=== PATIENT | female | born 1935 | race Caucasian/White ===

== ENCOUNTER → 2016-09-07 | Outpatient (CLI) | payer MEDICARE, BC ==
[~2016-09-07] MED LIST: DURAGESIC12 MCG; FENTANYL1 PATCH .7 TOP; FOSAMAX PO; HCTZ PO; MACROBID 100 M100 MG PO; PHENERGAN PO; PRAVACHOL PO; SYNTHROID0.05 MG PO; TARKA 4/2401 BOTTLE PO
--- NOTE | ~2016-09-07 | MR165 ---
[facility] A Service of [facility] & [facility] RADIOLOGY TEXT RESULTS PATIENT: JORI MAURO LOCATION: [facility] : 36 UNIT #: [id number] AGE: [address]: Kieran Gilman MD SEX: F ORDER DR: [id number] [facility] [address] [place], [place] [address] [id number] O MR#: [id number] Acc #: [id number] NAME: JORI MAURO : 1935 SEX: F STUDY DATE/TIME: 09/07/2016 19:33 UNIT: [facility] ROOM: STUDY DESCRIPTION: MR Shoulder Wo Contrast Rt Attending Physician: Kieran Gilman M.D. Referring Physician: Kieran Gilman M.D. Ordering Physician: Kieran Gilman M.D. Primary Care Physician: Kieran Gilman M.D. MRI CENTER REPORT This report is preliminary unless electronic signature is present. EXAM MRI of the right shoulder HISTORY 81-year-old female right shoulder pain, fell 1-1/2 years ago. FINDINGS Multiplanar multiecho imaging was performed of the right shoulder utilizing a high field magnet and dedicated protocol. Examination demonstrates moderate AC joint arthropathy with a prominent inferiorly-directed distal clavicular osteophyte which does produce some mass effect on the rotator cuff. There is also prominent superiorly directed acromial and clavicular osteophytes. Enthesopathic cystic change is noted along the greater tuberosity. Joint fluid within normal limits. There is a 6.0 mm focus of tendinopathy involving the critical zone of the supraspinatus tendon. Suspected partial-thickness articular-sided tear measuring about 9.0 mm within the critical zone of the supraspinatus tendon. No full-thickness tear identified. The infraspinatus, teres minor and subscapularis tendons appear intact. There is mild subscapularis tendinopathy. No muscle atrophy or edema. There is degeneration of the superior labrum. The biceps anchor and long tendon of the biceps appears intact. Anterior-posterior labrum unremarkable. The extraarticular soft tissues appear normal. IMPRESSION 1. Moderate AC joint arthropathy. There is some edema in the distal clavicle which may imply some active inflammation. 2. Rotator cuff tendinopathy predominantly involving the supraspinatus tendon with a 9.0 mm partial-thickness articular-sided tear within the critical zone of the supraspinatus tendon. This is estimated to involve less than 50% of the tendon thickness. [facility] A Service of [facility] / [facility] RADIOLOGY TEXT RESULTS PATIENT: JORI MAURO LOCATION: [facility] : 36 UNIT #: [id number] AGE: [address]: Kieran Gilman MD SEX: F ORDER DR: Dictated by... Marilyn Tse M.D. THIS IS AN ELECTRONICALLY VERIFIED REPORT Marilyn Tse M.D. at 09/12/2016 2:13 PM NEELA/rachel TD: 09/08/2016 11:58 JOB #: [id number] MRI CENTER REPORT Page 1 of 1 COPY
--- NOTE | ~2016-09-07 | MR113 ---
[facility] A Service of [facility] & [facility] RADIOLOGY TEXT RESULTS PATIENT: JORI MAURO [facility]ATION: [facility] : 36 UNIT #: [id number] AGE: [address]: Kieran Gilman MD SEX: F ORDER DR: [id number] [facility] [address] [place], [place] [address] [id number] O MR#: [id number] Acc #: [id number] NAME: JORI MAURO : 1935 SEX: F STUDY DATE/TIME: 09/07/2016 18:45 UNIT: [facility] ROOM: STUDY DESCRIPTION: MR Lumbar Wo Contrast Attending Physician: Kieran Gilman M.D. Referring Physician: Kieran Gilman M.D. Ordering Physician: Kieran Gilman M.D. Primary Care Physician: Kieran Gilman M.D. MRI CENTER REPORT This report is preliminary unless electronic signature is present. EXAM Lumbar MRI. HISTORY Low back pain since falling 1 1/2 years ago. Bilateral numbness in the feet. TECHNIQUE Multiplanar imaging of the lumbar spine was performed with short and long TR and compared to a previous scan from 07/27/2009. FINDINGS Coronal series demonstrates a mid lumbar dextroscoliosis. The Ackerman angle measures approximately 20 degrees. There is a compression fracture of L1 with edematous changes. The most extensive loss of height is in the mid portion of the vertebral body. Anteriorly, there is approximately 25% to 30% loss of height. There is approximate 15% to 20% loss of height posteriorly. The posterior-inferior margin of L1 is retropulsed back into the spinal canal contacting the conus. This causes moderately severe narrowing of the canal at this level. Marrow edema is also seen extending into the right pedicle and right facet. At L2-3, the disc is degenerated. There is broad-based posterior disc bulging with osteophyte formation and advanced bilateral facet disease with moderate central stenosis. Foraminal stenosis is mild bilaterally. At L3-4, the disc is collapsed. There is a small broad-based posterior osteophyte and there is moderate bilateral facet disease with moderate central stenosis. Foraminal narrowing is mild to moderate on both sides. At L4-5, the disc is collapsed with broad-based posterior osteophyte [facility] A Service of [facility] & [facility] RADIOLOGY TEXT RESULTS PATIENT: JORI MAURO LOCATION: [facility] : 36 UNIT #: [id number] AGE: [address]: Kieran Gilman MD SEX: F ORDER DR: formation and moderate facet hypertrophy. Central stenosis is not present to a significant degree. Foraminal stenosis is mild on the left and moderate on the right. At L5-S1, the disc is degenerated. There is broad-based posterior disc bulging. It extends into the foramen significantly more on the right than on the left. The left foramen is widely patent. The right foramen is severely narrowed. Facet hypertrophy is also asymmetrically worse on the right than on the left. No marrow signal abnormalities are seen elsewhere in the lumbar spine. No signal abnormalities are seen in the conus or in the lower thoracic cord. No paraspinous soft tissue masses are noted. IMPRESSION 1. Subacute compression fracture of L1 extending into the right pedicle and facet. There is moderately severe canal narrowing and contact of the anterior aspect of the conus secondary to retropulsion of the posterior inferior margin of L1. 2. Scoliosis with multilevel degenerative disc and facet disease elsewhere in the lumbar spine as described above level by level. Dictated by... Freddy Ramirez M.D. THIS IS AN ELECTRONICALLY VERIFIED REPORT Freddy Ramirez M.D. at 09/09/2016 3:52 PM JENELLE/radha TD: 09/09/2016 09:36 JOB #: [id number] MRI CENTER REPORT Page 1 of 1 COPY
== END | disposition home or self-care (01) ==
LOC: CMRI 18:00
DX: M51.36 Other intervertebral disc degeneration, lumbar region (principal); M12.9 Arthropathy, unspecified; M12.811 Other specific arthropathies, not elsewhere classified, right shoulder; M75.101 Unspecified rotator cuff tear or rupture of right shoulder, not specified as traumatic; M48.56XD Collapsed vertebra, not elsewhere classified, lumbar region, subsequent encounter for fracture with routine healing; M41.9 Scoliosis, unspecified
CPT/HCPCS: 72148; 73221

== ENCOUNTER → 2016-10-05 | Outpatient (CLI) | payer MEDICARE, BC ==
--- NOTE | ~2016-10-05 | MY29 ---
[facility] A Service of [facility] RADIOLOGY TEXT RESULTS PATIENT: JORI MAURO LOCATION: [facility] : 36 UNIT #: [id number] AGE: [address]: Kieran Gilman MD SEX: F ORDER DR: [id number] [id number] [facility] [place], [place] [address] [id number] O MR#: [id number] Acc #: [id number] NAME: JORI MAURO : 1935 SEX: F STUDY DATE/TIME: 10/05/2016 10:52 UNIT: [facility] ROOM: STUDY DESCRIPTION: MY TRISH SCREENING W/ CAD BILAT Attending Physician: Kieran Gilman M.D. Referring Physician: Kieran Gilman M.D. Ordering Physician: Kieran Gilman M.D. Primary Care Physician: Kieran Gilman M.D. MEDICAL IMAGING REPORT This report is preliminary unless electronic signature is present EXAM Bilateral digital screening mammogram with CAD 10/05/2016 INDICATIONS 81-year-old female for routine screening. No reported problems and no personal or family history of breast cancer. No surgeries. TECHNIQUE CC and MLO views of the breasts were obtained and reviewed with an approved FDA CAD device COMPARISON 09/29/2015, 06/16/2014, 06/13/2013 FINDINGS There is artifact on the right breast related to the Fentanyl patch that cannot be removed by the patient. Breast parenchyma is composed of scattered fibroglandular densities. The pattern is unchanged. There is no new dominant nodule, mass or suspicious cluster of microcalcifications. Benign calcifications are present. IMPRESSION 1. Benign screening mammogram, 1-year followup recommended. Patients over the age of 40 are entered into a reminder system with target due date for the next mammogram. A result letter will also be sent to the patient. BIRADS: Benign findings [facility] A Service of [facility] RADIOLOGY TEXT RESULTS PATIENT: JORI MAURO LOCATION: [facility] : 36 UNIT #: [id number] AGE: [address]: Kieran Gilman MD SEX: F ORDER DR: Dictated by... Talat Muro M.D. THIS IS AN ELECTRONICALLY VERIFIED REPORT Talat Muro M.D. at 10/05/2016 5:11 PM PENNY/felix TD: 10/05/2016 12:20 JOB #: [id number] MEDICAL IMAGING REPORT Page 1 of 1 COPY
== END | disposition home or self-care (01) ==
LOC: CWCC 09-30 11:45
DX: Z12.31 Encounter for screening mammogram for malignant neoplasm of breast (principal)
CPT/HCPCS: G0202

== ENCOUNTER → 2016-10-11 | Outpatient (CLI) | payer MEDICARE, BC ==
--- NOTE | ~2016-10-11 | MR113 ---
[facility] A Service of [facility] & [facility] RADIOLOGY TEXT RESULTS PATIENT: JORI MAURO [facility] UNIT #: [id number] AGE: [address]: Kieran Gilman MD SEX: F ORDER DR: [id number] [facility] [address] [place], [place] [address] [id number] O MR#: [id number] Acc #: [id number] NAME: JORI MAURO : 1935 SEX: F STUDY DATE/TIME: 10/11/2016 12:32 UNIT: [facility] ROOM: STUDY DESCRIPTION: MR Lumbar Wo Contrast Attending Physician: Kieran Gilman M.D. Referring Physician: Kieran Gilman M.D. Ordering Physician: Kieran Gilman M.D. Primary Care Physician: Kieran Gilman M.D. MRI CENTER REPORT This report is preliminary unless electronic signature is present. EXAM MRI of the lumbar spine without contrast dated 10/11/2016 COMPARISON MRI lumbar spine without contrast dated 09/07/2016. HISTORY Patient fell 1.5 years ago at home. Low back pain and right sided back pain with sciatica. Bilateral feet numbness. Lumbar spine surgery 30 years ago. FINDINGS Multisequence, multiplanar imaging of the lumbar spine was obtained without contrast as per the protocol. Dextroscoliosis of the lumbar spine is noted with the apex at L2-3. Cord angle measured from the inferior endplate of T12 to the inferior endplate of L5 is 19.5 degrees. Pronate compression fracture of L1 is noted with moderate to severe vertebral body height loss, relatively stable. The edema however appears to have improved slightly when compared to last month. There is mild retropulsion of fragments posteriorly into the canal causing mild canal stenosis along the posterior mid to inferior aspect of L1. It displaces the cord posteriorly without causing any significant cord compression or cord signal change. Conus terminates at the level of L2. Pre and paravertebral soft tissue are unremarkable. In the medial aspect of the upper to mid right kidney there is a 2 cm increased T2 signal lesion. A smaller lesion is noted in the anteromedial aspect of the mid to inferior left kidney, close to the left hilum with another lesion in the posterior aspect of the upper left renal hilum. Relatively stable. These are probably cysts based on statistics. Correlate with prior abdominal imaging. It is incompletely characterized on the current study. T12-L1: Disc osteophyte complex which is most prominent in the center. [facility] A Service of [facility] RADIOLOGY TEXT RESULTS PATIENT: JORI MAURO [facility] UNIT #: [id number] AGE: [address]: Kieran Gilman MD SEX: F ORDER DR: Moderate to severe right and mild left facet hypertrophic changes are noted with borderline size canal. No significant neural foraminal narrowing. Less than 1 cm increased T2 signal lesion is in the left neural foramen. L1-2: Disc osteophyte complex with moderate to severe bilateral facet hypertrophic changes most to severe canal stenosis. Moderate bilateral lateral recess stenosis are noted, worse on the left. Severe left and moderate to severe right neural foraminal narrowing is seen. Relatively stable. L2-3: Disc osteophyte complex with moderate to severe right and severe left facet hypertrophic change. Mild canal stenosis is seen with mild left lateral recess encroachment and mild to moderate left, mild right neural foraminal narrowing. L3-4: Disc osteophyte complex with mild bilateral facet changes, mild inferior bilateral neural foraminal narrowing and borderline size to mild canal stenosis. L4-5: Disc osteophyte complex which is asymmetrically prominent in right foraminal to extraforaminal region and to a lesser degree in the left foraminal to extraforaminal region. Mild left and mild to moderate right facet hypertrophic changes are noted. Right ligamentum flavum is not well seen. Correlate with possible surgery at this level. Mild to moderate left and moderate to severe right neural foraminal narrowing are present. Stable. L5-S1: Correlate with right hemilaminectomy changes. Disc osteophyte complex is seen with severe right and mild left facet hypertrophic change. Mild patent thecal sac is noted. Mild left and moderate to severe right neural foraminal narrowing are present. Stable. IMPRESSION 1. Stable postoperative changes at L4-5 and L5-S1. 2. Compression fracture of L1 is redemonstrated with moderate to severe narrowing of the vertebral body height. There has been interval improvement in the bony edema. There is mild retropulsion of fragment into the canal causing at least mild canal stenosis, stable. 3. Degenerative changes at multiple other levels that are relatively stable. 4. Bilateral renal lesions are noted, relatively stable. Based on statistics they are probably simple cysts. They are incompletely characterized on the current study. Dictated by... Kimber Hutchins M.D. [facility] A Service of [facility] RADIOLOGY TEXT RESULTS PATIENT: JORI MAURO LOCATION: [facility] : 36 UNIT #: [id number] AGE: [address]: Kieran Gilman MD SEX: F ORDER DR: THIS IS AN ELECTRONICALLY VERIFIED REPORT Kimber Hutchins M.D. at 10/12/2016 2:15 PM CPR/rnr TD: 10/12/2016 04:35 JOB #: [id number] MRI CENTER REPORT Page 1 of 1 COPY
== END | disposition home or self-care (01) ==
LOC: CMRI 12:06
DX: M54.5 Low back pain (principal); G89.29 Other chronic pain; M48.06 Spinal stenosis, lumbar region; M51.36 Other intervertebral disc degeneration, lumbar region; M48.56XA Collapsed vertebra, not elsewhere classified, lumbar region, initial encounter for fracture; N28.89 Other specified disorders of kidney and ureter
CPT/HCPCS: 72148